=== PATIENT | female | born 1955 | race Caucasian/White ===

== ENCOUNTER 2018-09-05 16:56 | Emergency (ER) | payer MEDICARE, BC ==
[~2018-09-05] VITALS: Ht 157.5 cm; Wt 70.5 kg
[2018-09-05 17:08] VITALS: BP 187/94
[2018-09-05] MEDS ORDERED: ketorolac trometh inj. 60 MG/2 ML VIAL IM ONE (17:35)
[2018-09-05] MEDS ORDERED: HYDROcodone/acetaminophen 10/325mg tab PO ONE (17:35)
== END 2018-09-05 18:30 | disposition home or self-care (01) ==
LOC: ER 16:56
DX: M48.061 Spinal stenosis, lumbar region without neurogenic claudication (principal); G89.29 Other chronic pain; M25.569 Pain in unspecified knee; M19.90 Unspecified osteoarthritis, unspecified site
CPT/HCPCS: 96372; 99284; J1885